=== PATIENT | female | born 1970 | race Caucasian/White ===

== ENCOUNTER 2019-06-25 07:43 | Emergency (ER) | payer MEDICAID ==
[~2019-06-25] VITALS: Ht 165.1 cm; Wt 77.7 kg
--- NOTE | 2019-06-25 08:05 | NUR ---
PT TO ROOM 39 W/ C/O BILAT CALF PAIN STARTED SATURDAY. PT STATES SHE HAS BEEN TRAVELLING BUT HAS BEEN WALKING A LOT. PT HAS HX OSTEOARTHRITIS, FIBROMYALGIA, BURSITIS. PT RESTING ON GURNEY. NADN. MONITORS APPLIED. WARM BLANKET PROVIDED. VSS.
[2019-06-25] MEDS ORDERED: KETOROLAC 30 MG/1 ML ONE ×2 (08:37→08:46)
--- NOTE | 2019-06-25 08:44 | NUR ---
PT RESTING ON [place] CLINICD[facility]ON. VSS. MEDICATED PER OCT.
[2019-06-25] MEDS ORDERED: KETOROLAC 30 MG/1 ML IM ONE (09:00)
[2019-06-25 09:14] LABS: BASOPHILS # (AUTO) 0.04 x10^3/uL (0-0.1); BASOPHILS % (AUTO) 1 % (0-1); EOSINOPHILS % (AUTO) 2 % (1-7); LYMPHOCYTES # (AUTO) 2.45 x10^3/uL (1-3.4); LYMPHOCYTES % (AUTO) 42 % (22-44); MD NO; MEAN CORPUSCULAR HEMOGLOBIN 31.1 pg (27.0-34.8); MEAN CORPUSCULAR VOLUME 94.2 fL (80-100); MEAN PLATELET VOLUME 8.7 fL (7.4-10.4); MONOCYTES # (AUTO) 0.38 x10^3/uL (0.2-0.8); MONOCYTES % (AUTO) 7 % (2-9); NEUTROPHILS # (AUTO) 2.85 x10^3/uL (1.8-6.8); NEUTROPHILS % (AUTO) 49 % (42-75); PLATELET COUNT 198 x10^3/uL (130-400)
--- NOTE | 2019-06-25 09:37 | NUR ---
PT RESTING ON GURNEY. NADN. CROCKER.
[2019-06-25 10:23] VITALS: BP 106/75
[2019-06-25 10:23] LABS: ANION GAP 5 mmol/L (5-15); CALCIUM 8.7 mg/dL (8.5-10.1); CHLORIDE 113 mmol/L (98-107)
--- NOTE | 2019-06-25 10:23 | NUR ---
PT RESTING ON TRACEY. NADN. CROCKER
[2019-06-25 10:26] LABS: CREATININE 0.74 mg/dL (0.55-1.02)
[2019-06-25 10:35] LABS: ALBUMIN 3.7 g/dL (3.4-5.0)
== END 2019-06-25 11:10 | disposition home or self-care (01) ==
LOC: ED 10:10
DX: M79.662 Pain in left lower leg (principal); M79.661 Pain in right lower leg; J06.9 Acute upper respiratory infection, unspecified; F90.9 Attention-deficit hyperactivity disorder, unspecified type
CPT/HCPCS: 36415; 71046; 80048; 82040; 85025; 93970; 96372; 99284; J1885